=== PATIENT | male | born 1975 | race Caucasian/White ===

== ENCOUNTER 2016-10-09 05:45 | Inpatient (IN) | payer MEDICARE, OTHER ==
[~2016-10-09] VITALS: Ht 162.6 cm; Wt 78.0 kg
[~2016-10-09 05:45] MED LIST: ABIL5TAB6 PO; ARIP400I IM; BENZ2TAB PO; CLON.5 PO; DEPA500T3 PO; GEOD80CA PO; TRAZ100T4 PO
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
[2016-10-09 05:58] VITALS: BP 127/60; PULSE 60; RESP 15; TEMP 98.1; O2SAT 96
[2016-10-09 06:21] LABS: AUTOMATED NEUTROPHIL # 1.2 TH/MM3 (1.8-7.7); BASOPHIL % 0.8 % (0.0-2.0); EOSINOPHIL # 0.1 TH/MM3 (0-0.4); EOSINOPHIL % 3.2 % (0.0-4.0); HEMATOCRIT 41.9 % (39.0-51.0); HEMO FLAGS DIFF FINAL; LYMPH % 52.9 % (9.0-44.0); MEAN CELL VOLUME 84.9 FL (80.0-100.0); MEAN CORPUSCULAR HEMOGLOBIN 28.1 PG (27.0-34.0); MEAN CORPUSCULAR HGB CONC 33.1 % (32.0-36.0); MONO % 12.1 % (0.0-8.0); PLATELET COUNT 138 TH/MM3 (150-450); RED BLOOD COUNT 4.93 MIL/MM3 (4.50-5.90); RED CELL DISTRIBUTION WIDTH 15.1 % (11.6-17.2); WHITE BLOOD COUNT 3.7 TH/MM3 (4.0-11.0)
[2016-10-09] MEDS ORDERED: ACETAMINOPHEN 325 MG TAB PO ONE (06:45)
[2016-10-09 06:49] LABS: ANION GAP 8 MEQ/L (5-15); AST (GOT) 11 U/L (15-37); BICARBONATE 27.9 MEQ/L (21.0-32.0); BLOOD UREA NITROGEN 15 MG/DL (7-18); CHLORIDE 109 MEQ/L (98-107); GLOMERULAR FILTRATION RATE 72 ML/MIN (>89); POTASSIUM 3.7 MEQ/L (3.5-5.1); SODIUM (NA) 145 MEQ/L (136-145)
[2016-10-09 06:52] LABS: ALKALINE PHOSPHATASE 52 U/L (45-117); ALT (GPT) 14 U/L (12-78); TOTAL BILIRUBIN ADULT 0.2 MG/DL (0.2-1.0)
[2016-10-09 08:25] LABS: AMPHETAMINE, URINE NEG (NEG); BARBITURATES, URINE NEG (NEG); COCAINE, URINE NEG (NEG)
[2016-10-09 08:49] VITALS: BP 130/64; PULSE 72; RESP 18; O2SAT 99
[2016-10-09] MEDS ORDERED: LORazepam 1 MG TAB PO PRN (10:00)
[2016-10-09] MEDS ORDERED: diphenhydrAMINE HCL 50 MG/ML VIAL IM PRN (10:00)
[2016-10-09] MEDS ORDERED: LORazepam 2 MG/ML VIAL IM PRN (10:00)
[2016-10-09] MEDS ORDERED: diphenhydrAMINE HCL 50 MG CAP PO PRN ×2 (10:00)
[2016-10-09] MEDS ORDERED: ALUMINUM/MAGNESIUM/SIMETH 30 ML CUP PO PRN (10:00)
[2016-10-09] MEDS ORDERED: MAGNESIUM HYDROXIDE SUSP 30 ML CUP PO PRN (10:00)
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
[2016-10-09] MEDS: NICOTINE 14 MG/24 HR PATCH TD SCH (11:00)
[2016-10-09 14:00] VITALS: BP 131/86; PULSE 68; RESP 18
[2016-10-09 16:39] VITALS: BP 123/72; PULSE 58; RESP 18; TEMP 98
[2016-10-09 20:44] VITALS: BP 123/72; PULSE 58; RESP 16; TEMP 98; O2SAT 97
[2016-10-09] MEDS: traZODone HCL 100 MG TAB PO SCH (21:08)
[2016-10-09] MEDS: clonazePAM 0.5 MG TAB PO SCH (21:08)
[2016-10-09] MEDS: DIVALPROEX SODIUM E.R. 500 MG TAB PO SCH (21:08)
[2016-10-09] MEDS: BENZTROPINE MESYLATE 2 MG TAB PO SCH (21:08)
[2016-10-09] MEDS: ACETAMINOPHEN 325 MG TAB PO PRN (21:26)
[2016-10-10 06:07] VITALS: BP 133/61; PULSE 57; RESP 16; TEMP 98; O2SAT 95
[2016-10-10] MEDS: ACETAMINOPHEN 325 MG TAB PO PRN ×2 (06:25→21:46)
[2016-10-10 08:24] LABS: AUTOMATED NEUTROPHIL # 1.6 TH/MM3 (1.8-7.7); BASOPHIL % 0.6 % (0.0-2.0); EOSINOPHIL # 0.2 TH/MM3 (0-0.4); EOSINOPHIL % 3.3 % (0.0-4.0); HEMATOCRIT 42.5 % (39.0-51.0); HEMO FLAGS DIFF FINAL; LYMPH % 51.9 % (9.0-44.0); LYMPHOCYTE # 2.4 TH/MM3 (1.0-4.8); MEAN CELL VOLUME 85.6 FL (80.0-100.0); MEAN CORPUSCULAR HEMOGLOBIN 28.6 PG (27.0-34.0); MEAN CORPUSCULAR HGB CONC 33.4 % (32.0-36.0); NEUT % 34.2 % (16.0-70.0); PLATELET COUNT 144 TH/MM3 (150-450); RED BLOOD COUNT 4.97 MIL/MM3 (4.50-5.90); RED CELL DISTRIBUTION WIDTH 15.1 % (11.6-17.2); WHITE BLOOD COUNT 4.7 TH/MM3 (4.0-11.0)
[2016-10-10 08:37] LABS: ANION GAP 6 MEQ/L (5-15); BICARBONATE 31.4 MEQ/L (21.0-32.0); BLOOD UREA NITROGEN 17 MG/DL (7-18); CHLORIDE 108 MEQ/L (98-107); GLOMERULAR FILTRATION RATE 87 ML/MIN (>89); POTASSIUM 3.9 MEQ/L (3.5-5.1); SODIUM (NA) 145 MEQ/L (136-145)
[2016-10-10 08:42] LABS: HDL CHOLESTEROL 41.5 MG/DL (40.0-60.0); LDL CHOLESTEROL 52 MG/DL (0-99)
[2016-10-10] MEDS: NICOTINE 14 MG/24 HR PATCH TD SCH (09:00)
[2016-10-10] MEDS: BENZTROPINE MESYLATE 2 MG TAB PO SCH ×2 (09:00→20:34)
[2016-10-10] MEDS: clonazePAM 0.5 MG TAB PO SCH ×2 (09:00→20:34)
[2016-10-10] MEDS: REMOVE OLD PATCH TD SCH (09:00)
--- NOTE | 2016-10-10 12:02 | HHI.PYPN ---
Subjective Remarks Patient seen and examined with counselor. Chart reviewed. Case discussed in treatment team. Patient has been no behavioral problem on the inpatient unit. There has been no evidence of any suicidality or violence/aggression. On my examination today, the patient remains quite childlike but is calm and pleasant. He denies any SI or HI. He denies side effects from medications. Review of Systems ROS Limitations: Poor Historian Other Complains of some mild, chronic L ankle pain, and I do see that there was a questionable avulsion fracture noted in May,. Objective Alert: Yes Bowie: Person, Place Mood: Calm Affect: Euthymic (childlike) Memory Intact: Comment (Not formally assessed) Hallucinations: Other (No AVH) Delusions: No Delusion Type: Other (No delusions) Suicidal: Ideation (Denies SI) Homicidal: Ideation (Denies HI) Insight/Judgement Poor, chronically so Remarks No sign of trauma at the ankle. No abnormal motor movements noted. TP linear. Speech wnl for rate. Labs Test 10/10/16 06:54 White Blood Count 4.7 TH/MM3 Red Blood Count 4.97 MIL/MM3 Hemoglobin 14.2 GM/DL Hematocrit 42.5 % Mean Corpuscular Volume 85.6 FL Mean Corpuscular Hemoglobin 28.6 PG Mean Corpuscular Hemoglobin 33.4 % Concent Red Cell Distribution Width 15.1 % Platelet Count 144 TH/MM3 Mean Platelet Volume 9.7 FL Neutrophils (%) (Auto) 34.2 % Lymphocytes (%) (Auto) 51.9 % Monocytes (%) (Auto) 10.0 % Eosinophils (%) (Auto) 3.3 % Basophils (%) (Auto) 0.6 % Neutrophils # (Auto) 1.6 TH/MM3 Lymphocytes # (Auto) 2.4 TH/MM3 Monocytes # (Auto) 0.5 TH/MM3 Eosinophils # (Auto) 0.2 TH/MM3 Basophils # (Auto) 0.0 TH/MM3 CBC Comment DIFF FINAL Differential Comment Sodium Level 145 MEQ/L Potassium Level 3.9 MEQ/L Chloride Level 108 MEQ/L Carbon Dioxide Level 31.4 MEQ/L Anion Gap 6 MEQ/L Blood Urea Nitrogen 17 MG/DL Creatinine 0.96 MG/DL Estimat Glomerular Filtration 87 ML/MIN Rate Random Glucose 84 MG/DL Calcium Level 8.5 MG/DL Triglycerides Level 230 MG/DL Cholesterol Level 139 MG/DL LDL Cholesterol 52 MG/DL HDL Cholesterol 41.5 MG/DL Cholesterol/HDL Ratio 3.34 RATIO Labs reviewed. Vitals/IOs Vital Signs Date Time Temp Pulse Resp B/P Pulse Ox O2 Delivery O2 Flow Rate FiO2 10/10/16 06:07 98.0 57 16 133/61 95 10/09/16 14:00 Room Air Assessment & Plan Problem List: (1) Intermittent explosive disorder ICD Code: F63.81 (2) SANAM (generalized anxiety disorder) ICD Code: F41.1 (3) Intellectual disability ICD Code: F79 Assessment & Plan Continue current psychotropics as ordered. Mild hyperammonemia without evident encephalopathy; I will add Carnitor and plan to recheck on outpatient basis. Check an XR of the L ankle given the h/o fracture to ensure there has been no progression of this problem. Continue other medications and care as ordered. Justification for Cont. Inpt. Monitoring for safety. Discharge Planning Monitor overnight. Anticipate discharge tomorrow barring some clinical worsening. Request HC Surrog/Guard Advoc?: Yes Duane Mccarthy MD Oct 10, 2016 12:02
[2016-10-10] MEDS: levOCARNitine 10% ORAL SOLN 118 ML BTL PO SCH (17:10)
[2016-10-10 17:38] LABS: HEMOGLOBIN A1a 1.3 %; HEMOGLOBIN A1b 1.5 %; HEMOGLOBIN Ao 85.1 %; HEMOGLOBIN LA1C 1.9 %; HEMOGLOBIN P3 3.8 %
[2016-10-10] MEDS: DIVALPROEX SODIUM E.R. 500 MG TAB PO SCH (20:35)
[2016-10-10] MEDS: traZODone HCL 100 MG TAB PO SCH (20:35)
[2016-10-10 21:24] VITALS: BP 122/55; PULSE 70; RESP 18; TEMP 97.7; O2SAT 96
--- NOTE | 2016-10-10 22:02 | RADRPT ---
EXAM DATE/TIME: 10/10/2016 21:14 [facility] COMPARISON: ANKLE LEFT COMPLETE ([id number]), June 06, 2016, 22:50. INDICATIONS : Left ankle pain with no known injury. MEDICAL HISTORY : None. SURGICAL HISTORY : None. ENCOUNTER: Initial ACUITY: 1 day PAIN SCORE: 10/10 LOCATION: Left ankle. FINDINGS: Three view exam was performed of the left ankle. The bony structures are in normal alignment. No ev idence of fracture, dislocation, or soft tissue swelling. The ankle mortise is intact. No radiopaqu e foreign bodies are seen. Bony mineralization is normal. CONCLUSION: Unremarkable examination of the left ankle. Aristeo Lizama Jr., MD on October 10, 2016 at 22:00 Board Certified Radiologist. This report was verified electronically.
[2016-10-11 06:10] VITALS: BP 119/69; PULSE 61; RESP 18; TEMP 97.8; O2SAT 95
[2016-10-11] MEDS: ACETAMINOPHEN 325 MG TAB PO PRN (06:45)
[2016-10-11] MEDS ORDERED: LEVO10%S PO (08:57)
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
[2016-10-11] MEDS ORDERED: MENTHOL/METHYL SALICYLATE OINT 30 GM TUBE TOP PRN (09:00)
[2016-10-11] MEDS: REMOVE OLD PATCH TD SCH (09:00)
[2016-10-11] MEDS: levOCARNitine 10% ORAL SOLN 118 ML BTL PO SCH (09:00)
[2016-10-11] MEDS: NICOTINE 14 MG/24 HR PATCH TD SCH (09:00)
[2016-10-11] MEDS: BENZTROPINE MESYLATE 2 MG TAB PO SCH (09:01)
[2016-10-11] MEDS: clonazePAM 0.5 MG TAB PO SCH (09:01)
== END 2016-10-11 12:15 | DRG 883 ==
LOC: NEPA 05:45 → NEDA 09:52 → H270 15:37
PROVIDERS: ADMIT Psychiatry & Neurology Psychiatry; ATTEND Psychiatry & Neurology Psychiatry
DX: F63.81 Intermittent explosive disorder (principal); F79 Unspecified intellectual disabilities; F41.1 Generalized anxiety disorder; R79.89 Other specified abnormal findings of blood chemistry; M25.572 Pain in left ankle and joints of left foot
CPT/HCPCS: 73610; 80048; 80053; 80061; 80164; 80307; 80320; 82140; 83036; 85025; 99284; J1200; J2060; Q0163

== ENCOUNTER 2016-10-23 10:24 | Emergency (ER) | payer MEDICARE, OTHER ==
[~2016-10-23 10:24] MED LIST changes: -GEOD80CA PO; +LEVO10%S PO
[2016-10-23 11:29] VITALS: BP 121/58; PULSE 63; RESP 18; TEMP 98; O2SAT 96
--- NOTE | 2016-10-23 11:31 | PD ---
HPI Chief Complaint: Psychiatric Symptoms Time Seen by Provider: 11:27 Travel History International Travel<30 days: No Contact w/Intl Traveler<30days: No Traveled to known affect area: No History of Present Illness HPI 41-year-old male brought in by police under the Aguero act. Patient [facility] in a [facility] and was acting very agitated, stated that he was "kicked out". Patient states he just has anxiety, but he wants a new place to live. Patient denies suicidal or homicidal ideation upon exam here. He has no significant medical problems. He has no acute medical complaints. He is allergic to [place] tree, and strong floral sounds. PFSH Past Medical History Autoimmune Disease: No Bipolar Disorder: Yes Anxiety: Yes Depression: Yes Cancer: No Cardiovascular Problems: No Developmental Delay: Yes Diabetes: No Diminished Hearing: No Endocrine: No Gastrointestinal Disorders: No Genitourinary: No Headaches: No Hypertension: Yes (NO MEDICATION FOR SAME AT THIS TIME) Immune Disorder: No Implanted Vascular Access Dvce: No Insomnia: Yes Musculoskeletal: No Neurologic: Yes (MR) Psychiatric: Yes Reproductive: No Respiratory: No Schizophrenia: Yes Seizures: No PNEUMOCCOCAL Vaccine (Year): 2 Social History Alcohol Use: No Tobacco Use: Yes (~1/2 PPD. ) Substance Use: No (Patient denies. ) Allergies-Medications (Allergen,Severity, Reaction): Coded Allergies: [place] Tree (Verified Allergy, Intermediate, Sneezing, 10/05/16) WATERY EYES AND NASAL CONGESTION Uncoded Allergies: STRONG FLORAL SCENTS (Adverse Reaction, Intermediate, Sneezing, 01/15/11) EYES WATER, NASAL CONGESTION Reported Meds & Prescriptions Reported Meds & Active Scripts Active Carnitor Liq (Levocarnitine) 1 Gm/10 Ml Soln 3 Ml PO TID 15 Days Abilify Maintena ER Inj (Aripiprazole) 400 Mg Susp 400 Mg IM MONTHLY Benztropine (Benztropine Mesylate) 2 Mg Tab 2 Mg PO BID Abilify (Aripiprazole) 5 Mg Tab 5 Mg PO DAILY Trazodone (Trazodone HCl) 100 Mg Tab 100 Mg PO 2 PO QHS Klonopin (Clonazepam) 0.5 Mg Tab 0.5 Mg PO BID AND HS Depakote ER (Divalproex Sodium) 500 Mg Trini 1,500 Mg PO HS 7 Days Review of Systems Except as stated in HPI: all other systems reviewed are Neg General / Constitutional: No: Fever Eyes: No: Visual changes HENT: No: Headaches Cardiovascular: No: Chest Pain or Discomfort Respiratory: No: Shortness of Breath Gastrointestinal: No: Abdominal Pain Genitourinary: No: Dysuria Musculoskeletal: No: Pain Skin: No Rash Neurologic: No: Weakness Psychiatric: No: Depression Endocrine: No: Polydipsia Hematologic/Lymphatic: No: Easy Bruising Physical Exam Narrative GENERAL: Patient is agitated in no acute distress. SKIN: Warm and dry. Normal color. Normal turgor. HEAD: Atraumatic. Normocephalic. EYES: Pupils equal and round. No scleral icterus. No injection or drainage. ENT: No nasal bleeding or discharge. Mucous membranes pink and moist. Pharynx is normal. NECK: Trachea midline. Neck is supple and nontender CARDIOVASCULAR: Regular rate and rhythm. RESPIRATORY: No accessory muscle use. Clear to auscultation. Breath sounds equal bilaterally. MUSCULOSKELETAL: Extremities without clubbing, cyanosis, or edema. No obvious deformities. NEUROLOGICAL: Awake and alert. No obvious cranial nerve deficits. Motor grossly within normal limits. Five out of 5 muscle strength in the arms and legs. Normal speech. PSYCHIATRIC: Appropriate mood and affect; insight and judgment normal. MDM Medical Decision Making Medical Screen Exam Complete: Yes Emergency Medical Condition: Yes Differential Diagnosis Aguero act. Mood disorder. Agitation. Narrative Course Patient is medically stable at time of exam. Psychiatric labs ordered per protocol. Patient is medically cleared for psychiatric evaluation. Diagnosis Primary Impression: Encounter for medical clearance for patient hold Additional Impression: Mood disorder Condition: Stable William William Oct 23, 2016 11:30
[2016-10-23 11:54] LABS: AMPHETAMINE, URINE NEG (NEG); BARBITURATES, URINE NEG (NEG); COCAINE, URINE NEG (NEG)
[2016-10-23 12:30] LABS: AUTOMATED NEUTROPHIL # 2.7 TH/MM3 (1.8-7.7); BASOPHIL # 0.1 TH/MM3 (0-0.2); BASOPHIL % 1.6 % (0.0-2.0); EOSINOPHIL # 0.1 TH/MM3 (0-0.4); EOSINOPHIL % 2.1 % (0.0-4.0); HEMATOCRIT 43.7 % (39.0-51.0); HEMO FLAGS DIFF FINAL; LYMPH % 37.6 % (9.0-44.0); MEAN CELL VOLUME 85.2 FL (80.0-100.0); MEAN CORPUSCULAR HEMOGLOBIN 28.2 PG (27.0-34.0); MEAN CORPUSCULAR HGB CONC 33.1 % (32.0-36.0); MONO % 6.9 % (0.0-8.0); NEUT % 51.8 % (16.0-70.0); PLATELET COUNT 180 TH/MM3 (150-450); RED BLOOD COUNT 5.13 MIL/MM3 (4.50-5.90); RED CELL DISTRIBUTION WIDTH 15.1 % (11.6-17.2); WHITE BLOOD COUNT 5.2 TH/MM3 (4.0-11.0)
[2016-10-23 12:51] LABS: ALKALINE PHOSPHATASE 59 U/L (45-117); ALT (GPT) 17 U/L (12-78); TOTAL BILIRUBIN ADULT 0.2 MG/DL (0.2-1.0)
[2016-10-23 12:53] LABS: ANION GAP 6 MEQ/L (5-15); AST (GOT) 19 U/L (15-37); BICARBONATE 27.3 MEQ/L (21.0-32.0); BLOOD UREA NITROGEN 24 MG/DL (7-18); CHLORIDE 108 MEQ/L (98-107); GLOMERULAR FILTRATION RATE 74 ML/MIN (>89); POTASSIUM 4.4 MEQ/L (3.5-5.1); SODIUM (NA) 141 MEQ/L (136-145)
[2016-10-23 14:08] VITALS: BP 124/69; PULSE 77; RESP 18
== END 2016-10-23 16:10 ==
LOC: NEPJ 10:24
DX: Z02.89 Encounter for other administrative examinations (principal); F39 Unspecified mood [affective] disorder; I10 Essential (primary) hypertension; G47.00 Insomnia, unspecified; F17.200 Nicotine dependence, unspecified, uncomplicated; Z86.69 Personal history of other diseases of the nervous system and sense organs; Z86.59 Personal history of other mental and behavioral disorders
CPT/HCPCS: 80053; 80307; 85025; 99283

== ENCOUNTER 2017-01-14 22:56 | Emergency (ER) | payer MEDICARE, OTHER ==
[~2017-01-14] VITALS: Ht 177.8 cm; Wt 75.0 kg
[~2017-01-14 22:56] MED LIST changes: -ABIL5TAB6 PO; -LEVO10%S PO
--- NOTE | 2017-01-14 23:28 | PD ---
HPI Chief Complaint: medical clearance Time Seen by Provider: 23:27 Travel History International Travel<30 days: No Contact w/Intl Traveler<30days: No Traveled to known affect area: No History of Present Illness HPI 41-year-old white male presents to emergency department because he has nowhere else to go. He had walked away from his living facility this afternoon after having an argument with staff. He states that this was a petit argument and he does not recall what it was about. He denies any suicidal or homicidal ideation. He states that he does not know how to read or write. He states that he is disabled and lives at a [facility]. He denies any medical complaints. PFS Past Medical History Narrative Medical Developmental delay, bipolar, anxiety, depression, hypertension, seizure disorder Autoimmune Disease: No Bipolar Disorder: Yes Anxiety: Yes Depression: Yes Cancer: No Cardiovascular Problems: No Developmental Delay: Yes Diabetes: No Diminished Hearing: No Endocrine: No Gastrointestinal Disorders: No Genitourinary: No Headaches: No Hypertension: Yes (NO MEDICATION FOR SAME AT THIS TIME) Immune Disorder: No Implanted Vascular Access Dvce: No Insomnia: Yes Musculoskeletal: No Neurologic: Yes (MR) Psychiatric: Yes Reproductive: No Respiratory: No Schizophrenia: Yes Seizures: No Tetanus Vaccination: Unknown PNEUMOCCOCAL Vaccine (Year): 2 Past Surgical History Surgical History: No Previous Surgery Other Surgery: No (j-pod) Social History Alcohol Use: No Tobacco Use: Yes (~1/2 PPD. ) Substance Use: No (Patient denies.) Allergies-Medications (Allergen,Severity, Reaction): Coded Allergies: [place] Tree (Verified Allergy, Intermediate, Sneezing, 10/23/16) WATERY EYES AND NASAL CONGESTION Uncoded Allergies: STRONG FLORAL SCENTS (Adverse Reaction, Intermediate, Sneezing, 01/15/11) EYES WATER, NASAL CONGESTION Reported Meds & Prescriptions Reported Meds & Active Scripts Active Abilify Maintena ER Inj (Aripiprazole) 400 Mg Susp 400 Mg IM MONTHLY Benztropine (Benztropine Mesylate) 2 Mg Tab 2 Mg PO BID Trazodone (Trazodone HCl) 100 Mg Tab 100 Mg PO 2 PO QHS Klonopin (Clonazepam) 0.5 Mg Tab 0.5 Mg PO BID AND HS Depakote ER (Divalproex Sodium) 500 Mg Trini 1,500 Mg PO HS 7 Days Review of Systems Except as stated in HPI: all other systems reviewed are Neg Physical Exam Narrative GENERAL: This is a well-nourished, well-developed patient, in no apparent distress. SKIN: No rashes, ecchymoses or lesions. Warm and dry. HEAD: Atraumatic. Normocephalic. EYES: PERRL, EOMI, no discharge or injection. No scleral icterus. EARS: Clear NOSE: Nasal turbinates appear normal. THROAT: Mucosa pink and moist. Airway patent. NECK: Trachea midline. supple, moves head freely. LUNGS: Clear to auscultation. CV: Regular in rhythm. ABDOMEN: Soft nontender. EXT: No clubbing cyanosis or edema. Data Data Last Documented VS Vital Signs Date Time Temp Pulse Resp B/P Pulse Ox O2 Delivery O2 Flow Rate FiO2 01/14/17 23:36 91 14 01/14/17 23:30 98.4 132/82 96 MDM Medical Decision Making Medical Screen Exam Complete: Yes Emergency Medical Condition: Yes Medical Record Reviewed: Yes Differential Diagnosis Differential diagnoses: Developmental delay, medical screening exam, homelessness, adjustment reaction Narrative Course The patient has no medical complaints. The nursing staff have been advised to find out where the patient lives in contact the staff and have the patient brought back to his facility. This is medical clearance exam Diagnosis Primary Impression: medical clearance exam Patient Instructions: General Instructions Additional Instructions: Rest. Follow-up with your doctor as needed. Return to the ER for problems. Med/Other Pt SpecificInfo: No Meds Exist/No RX given Disposition: 01 DISCHARGE HOME Condition: Stable Tadeo De Luna Jan 14, 2017 23:28
[2017-01-14 23:30] VITALS: BP 132/82; PULSE 91; RESP 14; TEMP 98.4; O2SAT 96
[2017-01-15] MEDS ORDERED: HALOPERIDOL LACTATE 5 MG/ML AMP IM ONE (02:30)
[2017-01-15] MEDS ORDERED: diphenhydrAMINE HCL 50 MG/ML VIAL IM ONE (02:30)
[2017-01-15 07:37] VITALS: BP 133/79; PULSE 116; RESP 20; O2SAT 96
== END 2017-01-15 08:56 | disposition home or self-care (01) ==
LOC: NEPD 22:56
DX: F31.9 Bipolar disorder, unspecified (principal); F20.9 Schizophrenia, unspecified
CPT/HCPCS: 96372; 99283; J1200; J1630

== ENCOUNTER 2017-01-16 13:26 | Emergency (ER) | payer MEDICARE, OTHER ==
[~2017-01-16] VITALS: Ht 172.7 cm; Wt 80.0 kg
[2017-01-16 13:40] VITALS: BP 134/87; PULSE 80; RESP 14; TEMP 98.7; O2SAT 98
--- NOTE | 2017-01-16 13:55 | PD ---
HPI Chief Complaint: Psychiatric Symptoms Time Seen by Provider: 13:54 Travel History International Travel<30 days: No Contact w/Intl Traveler<30days: No History of Present Illness HPI 41-year-old male presents to the emergency Department under Aguero act by local police for psychiatric evaluation. According to the Aguero act, the patient tried to jump out of a moving vehicle. He states that if he did not talk to someone he was going to kill himself. To me, the patient states he does not want to live at his long-term anymore. He denies any suicidal or homicidal ideation. He denies any elbow, tobacco, drug use. He has no medical complaints at this time. PFSH Past Medical History Autoimmune Disease: No Bipolar Disorder: Yes Anxiety: Yes Depression: Yes Cancer: No Cardiovascular Problems: No Developmental Delay: Yes Diabetes: No Diminished Hearing: No Endocrine: No Gastrointestinal Disorders: No Genitourinary: No Headaches: No Hypertension: Yes (NO MEDICATION FOR SAME AT THIS TIME) Immune Disorder: No Implanted Vascular Access Dvce: No Insomnia: Yes Musculoskeletal: No Neurologic: Yes (MR) Psychiatric: Yes Reproductive: No Respiratory: No Schizophrenia: Yes Seizures: Yes PNEUMOCCOCAL Vaccine (Year): 2 Past Surgical History Other Surgery: No (j-pod) Social History Alcohol Use: No Tobacco Use: Yes (~1/2 PPD. ) Substance Use: No (Patient denies.) Allergies-Medications (Allergen,Severity, Reaction): Coded Allergies: [place] Tree (Verified Allergy, Intermediate, Sneezing, 10/23/16) WATERY EYES AND NASAL CONGESTION Uncoded Allergies: STRONG FLORAL SCENTS (Adverse Reaction, Intermediate, Sneezing, 01/15/11) EYES WATER, NASAL CONGESTION Reported Meds & Prescriptions Reported Meds & Active Scripts Active Abilify Maintena ER Inj (Aripiprazole) 400 Mg Susp 400 Mg IM MONTHLY Benztropine (Benztropine Mesylate) 2 Mg Tab 2 Mg PO BID Trazodone (Trazodone HCl) 100 Mg Tab 100 Mg PO 2 PO QHS Klonopin (Clonazepam) 0.5 Mg Tab 0.5 Mg PO BID AND HS Depakote ER (Divalproex Sodium) 500 Mg Trini 1,500 Mg PO HS 7 Days Review of Systems Except as stated in HPI: all other systems reviewed are Neg Physical Exam Narrative GENERAL: Well-nourished, well-developed male patient, afebrile. SKIN: Focused skin assessment warm/dry. HEAD: Normocephalic. Atraumatic. EYES: No scleral icterus. No injection or drainage. NECK: Supple, trachea midline. No JVD or lymphadenopathy. CARDIOVASCULAR: Regular rate and rhythm without murmurs, gallops, or rubs. RESPIRATORY: Breath sounds equal bilaterally. No accessory muscle use. Lungs sounds are clear to auscultation. GASTROINTESTINAL: Abdomen soft, non-tender, nondistended. MUSCULOSKELETAL: No cyanosis, or edema. PSYCHIATRIC: No delusional thought processes. No hallucinations. Data Data Last Documented VS Vital Signs Date Time Temp Pulse Resp B/P Pulse Ox O2 Delivery O2 Flow Rate FiO2 01/16/17 13:40 98.7 80 14 134/87 98 Orders Complete Blood Count With Diff (01/16/17 13:33) Comprehensive Metabolic Panel (01/16/17 13:33) Psych Screen (01/16/17 13:33) Drug Screen, Random Urine (01/16/17 13:33) Alcohol (Ethanol) (01/16/17 13:33) Valproic Acid (Depakene) (01/16/17 13:55) Labs Laboratory Tests Test 01/16/17 13:45 White Blood Count 6.4 TH/MM3 Red Blood Count 4.95 MIL/MM3 Hemoglobin 14.2 GM/DL Hematocrit 42.2 % Mean Corpuscular Volume 85.1 FL Mean Corpuscular Hemoglobin 28.6 PG Mean Corpuscular Hemoglobin 33.6 % Concent Red Cell Distribution Width 15.0 % Platelet Count 206 TH/MM3 Mean Platelet Volume 8.5 FL Neutrophils (%) (Auto) 61.6 % Lymphocytes (%) (Auto) 25.2 % Monocytes (%) (Auto) 9.7 % Eosinophils (%) (Auto) 2.9 % Basophils (%) (Auto) 0.6 % Neutrophils # (Auto) 3.9 TH/MM3 Lymphocytes # (Auto) 1.6 TH/MM3 Monocytes # (Auto) 0.6 TH/MM3 Eosinophils # (Auto) 0.2 TH/MM3 Basophils # (Auto) 0.0 TH/MM3 CBC Comment DIFF FINAL Differential Comment Sodium Level 141 MEQ/L Potassium Level 4.2 MEQ/L Chloride Level 109 MEQ/L Carbon Dioxide Level 25.8 MEQ/L Anion Gap 6 MEQ/L Blood Urea Nitrogen 19 MG/DL Creatinine 1.08 MG/DL Estimat Glomerular Filtration 76 ML/MIN Rate Random Glucose 95 MG/DL Calcium Level 9.0 MG/DL Total Bilirubin 0.3 MG/DL Aspartate Amino Transf 47 U/L (AST/SGOT) Alanine Aminotransferase 27 U/L (ALT/SGPT) Alkaline Phosphatase 66 U/L Total Protein 7.1 GM/DL Albumin 3.6 GM/DL Valproic Acid (Depakene) Level 36 MCG/ML Ethyl Alcohol Level LESS THAN 3 MG/DL [facility] Medical Decision Making Medical Screen Exam Complete: Yes Emergency Medical Condition: Yes Medical Record Reviewed: Yes Differential Diagnosis Intellectual disability versus schizoaffective disorder versus medical clearance Narrative Course 41-year-old male presents to the emergency Department under Aguero act by local police. The patient states he does not want to live at his long-term anymore, but denies any suicidal or homicidal ideation to me. CBC, CMP, alcohol level, urine drug screen, Depakote level are ordered and pending. CBC shows no acute abnormality. CMP shows no acute abnormality. Alcohol level is less than 3. UDS is pending. Depakote level is 36. Patient is medically cleared for psychiatric screening and disposition. Mental health screening discussed with the patient. Psychiatric screen ordered. Diagnosis Primary Impression: Intellectual disability Additional Instructions: Patient is medically cleared for psychiatric screening and disposition. Condition: Stable Mike,Grace ARCOS January 16, 2017 13:55
[2017-01-16 14:06] LABS: AUTOMATED NEUTROPHIL # 3.9 TH/MM3 (1.8-7.7); BASOPHIL % 0.6 % (0.0-2.0); EOSINOPHIL # 0.2 TH/MM3 (0-0.4); EOSINOPHIL % 2.9 % (0.0-4.0); HEMATOCRIT 42.2 % (39.0-51.0); HEMO FLAGS DIFF FINAL; LYMPH % 25.2 % (9.0-44.0); LYMPHOCYTE # 1.6 TH/MM3 (1.0-4.8); MEAN CELL VOLUME 85.1 FL (80.0-100.0); MEAN CORPUSCULAR HEMOGLOBIN 28.6 PG (27.0-34.0); MEAN CORPUSCULAR HGB CONC 33.6 % (32.0-36.0); MONO % 9.7 % (0.0-8.0); NEUT % 61.6 % (16.0-70.0); PLATELET COUNT 206 TH/MM3 (150-450); RED BLOOD COUNT 4.95 MIL/MM3 (4.50-5.90); WHITE BLOOD COUNT 6.4 TH/MM3 (4.0-11.0)
[2017-01-16 14:27] LABS: ALT (GPT) 27 U/L (12-78); ANION GAP 6 MEQ/L (5-15); AST (GOT) 47 U/L (15-37); BICARBONATE 25.8 MEQ/L (21.0-32.0); BLOOD UREA NITROGEN 19 MG/DL (7-18); CHLORIDE 109 MEQ/L (98-107); GLOMERULAR FILTRATION RATE 76 ML/MIN (>89); POTASSIUM 4.2 MEQ/L (3.5-5.1); SODIUM (NA) 141 MEQ/L (136-145)
[2017-01-16 14:30] LABS: ALKALINE PHOSPHATASE 66 U/L (45-117); TOTAL BILIRUBIN ADULT 0.3 MG/DL (0.2-1.0)
[2017-01-16 16:25] LABS: AMPHETAMINE, URINE NEG (NEG); BARBITURATES, URINE NEG (NEG); COCAINE, URINE NEG (NEG)
[2017-01-16 19:26] VITALS: BP 139/81; PULSE 75; RESP 18; O2SAT 97
[2017-01-16 22:31] VITALS: BP 154/70; PULSE 58; RESP 17; O2SAT 98
[2017-01-17 02:00] VITALS: BP 117/72; PULSE 87; RESP 17; O2SAT 96
[2017-01-17 06:22] VITALS: BP 130/60; PULSE 57; RESP 16; O2SAT 99
--- NOTE | 2017-01-17 11:04 | PD.CONS ---
Provisional Diagnosis Admission Date [place] I. Intermittent explosive disorder, schizoaffective disorder, SANAM [place] II. Mild to moderate intellectual disability [place] III. No significant medical history [place] IV. Intellectually disabled [place] V. 55 History of Present Illness Service Psychiatry Consult Requested By Primary Care Physician Unknown HPI The patient is a 41-year-old man, domiciled in jail, unemployed , supported by family, extensive psychiatric history of intellectual disability , as schizoaffective disorder, SANAM, intermittent explosive disorder, aggressive behavior, psychiatric hospitalizations, he was hospitalized here at [place] in [address] Kelly's care, documentation was reviewed, he was seen by Dr. Bradley in outpatient basis, he is on Geodon 120, Depakote 500 mg twice a day, trazodone 200 mg, clonazepam 1 mg twice a day, no significant medical history, who presents to the emergency Department under Aguero act by local police for psychiatric evaluation. According to the Aguero act, the patient tried to jump out of a moving vehicle. He stated that if he did not talk to someone he was going to kill himself. Patient was in 2016 J pod with a very similar presentation. On psychiatric evaluation today patient is calm, cooperative and pleasant. He says that he wants to go back to his jail. Patient denies depressive symptoms, he denies anxiety, nicolas and psychosis. He denies suicidal or homicidal ideation, he denies visual and auditory hallucinations. Patient is oriented 3, with very concrete thinking, he is a happy camper in the ER, and agitated aggressive. Patient denies the use of illicit drugs and alcohol.. Review of Systems Constitutional: DENIES: Diaphoretic episodes, Fatigue, Fever, Weight gain, Weight loss, Chills, Dizziness, Change in appetite, Night Sweats Endocrine: DENIES: Heat/cold intolerance, Polydipsia, Polyuria, Polyphagia Eyes: DENIES: Blurred vision, Diplopia, Eye inflammation, Eye pain, Vision loss , Photosensitivity, Double Vision Ears, nose, mouth, throat: DENIES: Tinnitus, Hearing loss, Vertigo, Nasal discharge, Oral lesions, Throat pain, Hoarseness, Ear Pain, Running Nose, Epistaxis, Sinus Pain, Toothache, Odynophagia Cardiovascular: DENIES: Chest pain, Palpitations, Syncope, Dyspnea on Exertion , PND, Lower Extremity Edema, Orthopnea, Claudication Genitourinary: DENIES: Sexual dysfunction, Urinary frequency, Urinary incontinence, Urgency, Hematuria, Dysuria, Nocturia, Penile Discharge, Testicular Pain, Testicular Swelling Musculoskeletal: DENIES: Joint pain, Muscle aches, Stiffness, Joint Swelling, Back pain, Neck pain Hematologic/lymphatic: DENIES: Bruising, Lymphadenopathy Immunologic/allergic: DENIES: Eczema, Urticaria Neurologic: DENIES: Abnormal gait, Headache, Localized weakness, Paresthesias, Seizures, Speech Problems, Tremor, Poor Balance Psychiatric: DENIES: Anxiety, Confusion, Mood changes, Depression, Hallucinations, Agitation, Suicidal Ideation, Homicidal Ideation, Delusions Past Family Social History Coded Allergies: [place] Tree (Verified Allergy, Intermediate, Sneezing, 10/23/16) WATERY EYES AND NASAL CONGESTION Uncoded Allergies: STRONG [place]ORAL SCENTS (Adverse Reaction, Intermediate, Sneezing, 01/15/11) EYES WATER, NASAL CONGESTION Active Scripts Aripiprazole ER Inj (Abilify Maintena ER Inj)400 Mg [id number] Mg IM MONTHLY #1 INJECTION Ref 2 Prov:Temo Bradley MD 09/07/16 Benztropine 2 Mg Tab2 Mg PO BID #60 TAB Ref 1 Prov:Temo Bradley MD 09/07/16 Trazodone 100 Mg [id number] Mg PO 2 po qhs #60 TAB Ref 1 Prov:Temo Bradley MD 08/24/16 Clonazepam (Klonopin)0.5 Mg Tab0.5 Mg PO BID and hs #90 TAB Ref 2 Prov:Temo Bradley MD 08/24/16 Divalproex ER (Depakote ER)500 Mg Taber1,500 Mg PO HS 7 Days Ref 2 Prov:Temo Bradley MD 08/24/16 Family History Patient denies family psychiatric history Social History Patient was born and raised in the [facility], lives in a jail, he is single, on SSI, unclear about level of education Patient's Strengths (min. 2) On active psychiatric treatment Physical Exam Physical exam no EPS, tremors, agitation, stiffness, withdrawal, psychomotor retardation present Vital Signs Vital Signs Date Time Temp Pulse Resp B/P Pulse Ox O2 Delivery O2 Flow Rate FiO2 01/17/17 06:22 57 16 130/60 99 Room Air 01/16/17 13:40 98.7 I/O 01/16/17 01/16/17 01/17/17 08:00 16:00 00:00 Intake Total 300 ml Balance 300 ml Lab Results Depakote levels are 36, toxicology is negative, BAL is negative Mental Status Examination Appearance man, who appears younger than his stated age, good hygiene, [facility],, cooperative, pleasant Speech: Pressured Orientation: x3 Memory: Unremarkable Thought Process: Logical Thought Content: Unremarkable Language [place], limited language Fund of Knowledge Limited due to mild to moderate intellectual disability Hallucination Type: None Attention and Concentration: Good Suicidal Ideation: No Previous Suicide Attempts: No Homicidal Ideation: No Previous Homicide Attempts: No Judgment: Impulsive Affect: Euthymic Mood: Appropriate Motor Activity: Normal gait Assessment & Plan Problem List: (1) Intermittent explosive disorder Assessment & Plan: Patient was seen for psychiatric evaluation today and he does not really present any evidence of objective or subjective significant or acute symptomatology of depression, anxiety, nicolas or psychosis. No aggressive behavior, no agitation, no paranoia or delusions present. Patient denies suicidal or homicidal ideation, he denies visual and auditory hallucinations. Recent episode of jumping out of a moving car seems to be part of poor impulse control disorder already well documented in the past. Patient does not meet criteria for psychiatric admission at this moment. Patient should continue his psychiatric care as an outpatient, he will continue his current psychotropic regimen. Psychoeducation, and support provided. Aguero act will be lifted. ICD Code: F63.81 Assessment & Plan Estimated LOS: Clint Pepper MD January 17, 2017 11:04
[2017-01-17 11:16] VITALS: BP 124/70; PULSE 58; RESP 17; O2SAT 98
[2017-01-17 11:50] VITALS: BP 120/70; TEMP 98.5
[2017-01-17 11:52] VITALS: BP 120/70; PULSE 58; RESP 18; TEMP 98.5
== END 2017-01-17 12:55 | disposition home or self-care (01) ==
LOC: NEDAMB 13:26 → NEPJ 01-17 12:55
DX: F79 Unspecified intellectual disabilities (principal); F63.81 Intermittent explosive disorder; F31.9 Bipolar disorder, unspecified; F41.8 Other specified anxiety disorders; I10 Essential (primary) hypertension; F20.9 Schizophrenia, unspecified; R56.9 Unspecified convulsions; F17.210 Nicotine dependence, cigarettes, uncomplicated
CPT/HCPCS: 80053; 80164; 80307; 85025; 99283